=== PATIENT | male | born 1985 | race American Indian/Alaskan Native ===

== ENCOUNTER 2016-07-14 12:52 | Emergency (ER) | payer SELFPAY ==
[2016-07-14 14:48] VITALS: BP 148/92
[2016-07-14 16:01] LABS: Basophils % (Auto) 1.2 % (0.0-1.8); Eosinophils % (Auto) 3.2 % (0.0-4.3); Hematocrit 41.4 % (35.5-45.6); Mean Corpuscular HGB Conc 31 % (32-34); Platelet Count 181 K/mm3 (140-440); Red Blood Count 6.07 M/mm3 (3.65-5.03); Red Cell Distribution Width 16.2 % (13.2-15.2); White Blood Count 6.2 K/mm3 (4.5-11.0)
[2016-07-14 16:02] LABS: Mean Corpuscular Hemoglobin 21 pg (28-32); Mean Corpuscular Volume 68 fl (84-94)
[2016-07-14 16:32] LABS: Blood Urea Nitrogen 12 mg/dL (9-20); Calcium 9.5 mg/dL (8.4-10.2); Carbon Dioxide 29 mmol/L (22-30); Glucose 104 mg/dL (75-100)
[2016-07-14 16:48] LABS: Anion Gap 13 mmol/L; Chloride 102.7 mmol/L (98-107); Potassium 5.1 mmol/L (3.6-5.0); Sodium 140 mmol/L (137-145)
--- NOTE | 2016-07-17 15:34 | ED Elopement Review ---
ED Pt Elopement review - Results review Lab results: Laboratory Tests 07/14/16 07/14/16 07/14/16 15:27 15:27 18:15 WBC 6.2 RBC 6.07 H Hgb 13.0 Hct 41.4 MCV 68 L MCH 21 L MCHC 31 L RDW 16.2 H Plt Count 181 Lymph % (Auto) 32.3 [place] % (Auto) 5.8 Eos % (Auto) 3.2 Baso % (Auto) 1.2 Lymph # 2.0 [place] # 0.4 Eos # 0.2 Baso # 0.1 Seg Neutrophils % 57.5 Seg Neutrophils # 3.6 Sodium 140 Potassium 5.1 H Chloride 102.7 Carbon Dioxide 29 Anion Gap 13 BUN 12 Creatinine 1.2 Estimated GFR > 60 BUN/Creatinine Ratio 10.00 Glucose 104 H Calcium 9.5 Troponin T < 0.010 < 0.010 07/14/16 20:59 WBC RBC Hgb Hct MCV MCH MCHC RDW Plt Count Lymph % (Auto) [place] % (Auto) Eos % (Auto) Baso % (Auto) Lymph # [place] # Eos # Baso # Seg Neutrophils % Seg Neutrophils # Sodium Potassium Chloride Carbon Dioxide Anion Gap BUN Creatinine Estimated GFR BUN/Creatinine Ratio Glucose Calcium Troponin T < 0.010 - Call Back decision Pt Call Back Decision: No action required
== END 2016-07-14 22:16 | disposition left against medical advice (07) ==
LOC: ED 12:52
DX: R07.9 Chest pain, unspecified (principal); M25.512 Pain in left shoulder; Z53.21 Procedure and treatment not carried out due to patient leaving prior to being seen by health care provider
CPT/HCPCS: 36415; 80048; 84484; 85025; 93005; 93010